=== PATIENT | male | born 1965 | race Caucasian/White ===

== ENCOUNTER 2020-06-14 09:15 | Emergency (ER) | payer SELFPAY ==
[2020-06-14 09:47] LABS: EOS # 0.2 (0.04-0.40); EOS % 1.8 % (0.0-4.0); HEMATOCRIT 43.7 % (42.0-52.0); LYMPH# 2.7 (1.50-4.00); MEAN CELL VOLUME 90 fl (78-100); MEAN CORPUSCULAR HEMOGLOBIN 31 pg (27-31); MEAN CORPUSCULAR HGB CONC 34 g/dL (33-37); MEAN PLATELET VOLUME 9.1 fl (7.4-10.4); MONO # 0.9 (0.20-0.80); NEU # 5.3 (1.40-6.50); PLATELET COUNT 211 K/mm3 (130-400); RED BLOOD COUNT 4.87 M/mm3 (4.20-5.60); RED CELL DISTRIBUTION WIDTH 12.4 % (11.5-14.5)
[2020-06-14 09:56] LABS: ALBUMIN 4.2 g/dL (3.5-5.0)
[2020-06-14 09:57] LABS: POTASSIUM 4.5 mmol/L (3.5-5.1); SODIUM 137 mmol/L (136-145)
[2020-06-14 09:58] LABS: CALCIUM 9.3 mg/dL (8.3-10.5)
[2020-06-14 09:59] LABS: GLUCOSE 159 mg/dL (75-110); TOTAL PROTEIN 7.4 g/dL (6.4-8.3)
[2020-06-14 10:00] LABS: CARBON DIOXIDE 24 mmol/L (22-29)
[2020-06-14 10:01] LABS: TOTAL BILIRUBIN 0.7 mg/dL (0.2-1.2)
[2020-06-14 10:04] LABS: AST-SGOT 25 U/L (5-34)
[2020-06-14 10:05] LABS: ALT/SGPT 27 U/L (0-55)
[2020-06-14 10:14] LABS: TROPONIN-I < 0.03 ng/mL (<0.030)
[2020-06-14 10:23] LABS: D-DIMER 0.73 mg/L FEU (0.15-0.50)
[2020-06-14] MEDS ORDERED: TOPROL XL 25MG25 MG (13:29)
[2020-06-14] MEDS ORDERED: PRINIVIL20 M1 (13:29)
[2020-06-14] MEDS ORDERED: LOW DOSE ASPIRI81 M1 PO (13:29)
[2020-06-14] MEDS ORDERED: LASIX20 M1 PO (13:29)
[2020-06-14 14:38] LABS: PARTIAL THROMBOPLASTIN TIME 51.2 SECONDS (21.0-32.0); PROTHROMBIN TIME 9.7 SECONDS (9.0-12.0)
[2020-06-14 14:51] VITALS: BP 132/89
== END 2020-06-14 15:25 | disposition short-term general hospital (02) ==
LOC: ED 09:15
PROVIDERS: Physician Assistant
DX: R07.9 Chest pain, unspecified (principal); I25.2 Old myocardial infarction; I50.9 Heart failure, unspecified; I25.10 Atherosclerotic heart disease of native coronary artery without angina pectoris; I10 Essential (primary) hypertension; Z87.891 Personal history of nicotine dependence; Z79.82 Long term (current) use of aspirin
CPT/HCPCS: 90715; J1644; Q9967

== ENCOUNTER → 2024-08-15 | Outpatient (CLI) | payer MEDICARE, MEDICAID ==
[~2024-08-15] MED LIST: LASIX20 M1 PO; LOW DOSE ASPIRI81 M1 PO; PRINIVIL20 M1; TOPROL XL 25MG25 MG
== END ==
LOC: RAD 09:00
DX: M16.0 Bilateral primary osteoarthritis of hip (principal)